=== PATIENT | male | born 1940 ===

== ENCOUNTER 2021-07-27 11:53 | Outpatient (CLI) | payer MEDICARE, BC ==
[~2021-07-27] VITALS: Ht 177.8 cm; Wt 84.0 kg
[~2021-07-27 11:53] MED LIST: ASPIRIN E.C. 8181 MG PO; ATIVAN 1MG T1 MG/TAB PO; CALCIUM 600 MG1 EAC2 PO; CYMBALTA 30MG30 MG PO; DITROPAN XL 5MG5 M1 PO; FENTANYL 25 MCG TD; FISH OIL 1000MG1 CAP PO; FLOMAX 0.40.4 MG/CAP PO; LIPITOR 10MG10 MG PO; METAMUCIL3.4 GM/DOS PO; MUCUS RELIEF400 M1 PO; MULTI VITAMINS1 TAB PO; NEURONTIN300 MG/CAP PO; NORVASC 5MG5 MG/TAB PO; PREDNISONE20 MG PO; PRESERVISION1 SGL PO; PRILOSEC 20MG20 MG PO; PRINIVIL40 MG PO; STOOL SOFTENER100 M2 PO; TYLENOL 325MG325 MG PO; XALATAN EYE DROPS OS
[2021-07-27] MEDS ORDERED: LIPITOR 80MG80 MG PO (12:34)
[2021-07-27] MEDS ORDERED: CATAPRES-TTS 20.2 M1 TD (12:35)
[2021-07-27 12:46] VITALS: BP 120/73; PULSE 69; TEMP 97.9
[2021-07-27 14:00] VITALS: BP 131/84; PULSE 71
[2021-07-27 14:30] VITALS: BP 141/72; PULSE 69
[2021-07-27 15:00] VITALS: BP 144/87; PULSE 67
--- NOTE | 2021-07-27 15:50 | NUR ---
Pt discharged via wheelchair with , assembly instructions writer escorted to private vehicle service; prior to discharge education/instructions gone over with pt and , verbalized understanding; assembly instructions writer assisted with pt brief change in bed and assisted to restroom prior to discharge; upon transferring to wheelchair, pts gait was at baseline and assistance x2 ( and RN) was needed; pt denied pain or dizziness.
[2021-07-27 16:13] LABS: GLUCOSE,CSF 57 mg/dL (40-70); TOTAL PROTEIN,CSF 25 mg/dL (15-45)
[2021-07-27 16:57] LABS: CSF COLOR COLORLESS
[2021-07-27 16:58] LABS: CSF APPEARANCE CLEAR; CSF RBC 19 /mm3 (0-0)
[2021-07-27 17:00] LABS: CSF MONONUCLEAR 100 % (70-100); CSF POLYMORPHONUCLEAR 0 % (0-6)
[2021-07-29 11:37] LABS: HSV 2 DNA PCR QUAL Not Detected (())
[2021-08-01 13:45] LABS: CSF OLIG BD INTERPRETATION 0 bands (<2); SE OLIGOCLONAL BANDING 0 bands (())
[2021-08-03 07:45] LABS: ALBUMIN CSF 14.3 mg/dL (<=27.0)
[2021-08-03 08:06] LABS: CSF IGG/ALBUMIN 0.06 (<=0.21); CSF,IGG 0.9 mg/dL (<=8.1)
[2021-08-04 14:52] LABS: ALBUMUN SERUM 4200 mg/dL (()); IGG,SERUM 238 mg/dL (()); IGG/ALBUMIN SERUM 0.06 (<=0.40)
== END 2021-07-27 15:50 ==
LOC: COL.RAD 11:53
PROVIDERS: Psychiatry & Neurology Neurology
DX: R90.82 White matter disease, unspecified (principal)